=== PATIENT | male | born 1960 | race Caucasian/White ===

== ENCOUNTER 2022-12-19 13:08 | Emergency (ER) | payer BC ==
[~2022-12-19] VITALS: Ht 190.5 cm; Wt 101.9 kg
[2022-12-19] MEDS ORDERED: METOCLOPRAMIDE INJ 10MG/2ML VIAL IV ONE (14:25)
[2022-12-19] MEDS ORDERED: MECLIZINE 25 MG TABLET PO ONE (14:25)
[2022-12-19] MEDS ORDERED: ISOVUE-370 76% 100ML VIAL As Ordered ONE (14:42)
[2022-12-19 14:54] LABS: BASO % 0.4 % (0.0-1.0); EOS % 0.8 % (0.0-3.0); HEMATOCRIT 27.1 % (42.0-52.0); HEMOGLOBIN 8.9 g/dl (13.5-17.5); LYMPH # 0.2 10^3/uL (1.5-5.0); LYMPH % 7.9 % (24.0-44.0); MEAN CORPUSCULAR HEMOGLOBIN 34.5 pg (27.0-33.0); MEAN CORPUSCULAR HGB CONC 32.8 g/dl (32.0-36.5); MONO # 0.2 10^3/uL (0.0-0.8); NEUTROPHILS # 2.2 10^3/uL (1.5-8.5); NEUTROPHILS % 83.4 % (36.0-66.0); RED BLOOD COUNT 2.58 10^6/uL (4.30-6.10); WHITE BLOOD COUNT 2.7 10^3/uL (4.0-10.0)
[2022-12-19 14:55] LABS: INR 1.02; PROTHROMBIN TIME 13.6 SECONDS (12.5-14.5)
[2022-12-19 14:56] LABS: PARTIAL THROMBOPLASTIN TIME 27.7 SECONDS (24.8-34.2)
[2022-12-19 15:04] LABS: CK-MB VALUE MASS < 1.0 NG/ML (<3.6)
[2022-12-19 15:06] LABS: ALBUMIN 3.8 G/DL (3.2-5.2); ALKALINE PHOSPHATASE 56 U/L (46-116); ALT/SGPT 11 U/L (7.0-40); AST/SGOT < 8 U/L (<34); BILIRUBIN,DIRECT 0.4 MG/DL (<0.4); BILIRUBIN,TOTAL 1.1 MG/DL (0.3-1.2); BLOOD UREA NITROGEN 24 MG/DL (9-23); CALCIUM LEVEL 8.3 MG/DL (8.3-10.6); CARBON DIOXIDE LEVEL 26 MMOL/L (20-31); CHLORIDE LEVEL 105 MMOL/L (98-107); CPK CREATINE PHOSPHOKINASE 29 U/L (46-171); CREATININE FOR GFR 1.18 MG/DL (0.70-1.30); GLOMERULAR FILTRATION RATE > 60.0 (>49); GLUCOSE, FASTING 201 MG/DL (74-106); MB/CK RELATIVE INDEX 3.44 (< OR =4); POTASSIUM SERUM 4.2 MMOL/L (3.5-5.1); SODIUM LEVEL 139 MMOL/L (136-145); TOTAL PROTEIN 6.2 G/DL (5.7-8.2)
[2022-12-19 15:08] LABS: THYROID STIMULATING HORMONE 0.851 uIU/ML (0.55-4.78)
[2022-12-19 15:09] LABS: FREE T4 1.05 NG/DL (0.89-1.76)
[2022-12-19] MEDS: NS 1,000 ML IV SCH ×2 (15:09→21:00)
[2022-12-19 15:32] LABS: PLATELET COUNT, AUTOMATED 85 10^3/uL (150-450)
[2022-12-19 16:21] LABS: CK-MB VALUE MASS < 1.0 NG/ML (<3.6)
[2022-12-19 16:23] LABS: CPK CREATINE PHOSPHOKINASE 31 U/L (46-171); MB/CK RELATIVE INDEX 3.22 (< OR =4)
[2022-12-19 20:04] VITALS: TEMP 98.3
[2022-12-19] MEDS ORDERED: MECL1TAB31 PO (20:26)
[2022-12-19 20:45] VITALS: BP 116/56
[2022-12-19 20:49] VITALS: O2SAT 93
== END 2022-12-19 21:01 | disposition home or self-care (01) ==
LOC: M ED 13:08
DX: D61.818 Other pancytopenia (principal); H81.4 Vertigo of central origin; R00.1 Bradycardia, unspecified; E11.9 Type 2 diabetes mellitus without complications; I10 Essential (primary) hypertension; K58.9 Irritable bowel syndrome, unspecified; L98.2 Febrile neutrophilic dermatosis [Sweet]
CPT/HCPCS: 70450; 70496; 70498; 70544; 70551; 71046; 80047; 80048; 80076; 82550; 82553; 84439; 84443; 84484; 85025; 85049; 85055; 85610; 85730; 93005; 93041; 94760; 96374; 99285; J2765; Q9967

== ENCOUNTER → 2025-03-02 | Outpatient (CLI) | payer MEDICARE ==
[~2025-03-02] MED LIST: CYCL-707 PO; DOXY100T PO; DOXY50CA PO; FURO20TA2 PO; GLIM1TAB84 PO; JAKA10TA PO; LASI20TA3 PO; LIDO1ADH93 TD; MECL-209 PO; PERC5TAB12 PO; PRED10TA2 PO; SILD100T PO; VITA100093 PO
[2025-03-02 10:46] LABS: BASO # 0.0 10^3/uL (0.0-0.2); BASO % 0.0 % (0.0-1.0); EOS # 0.1 10^3/uL (0.0-0.5); EOS % 3.1 % (0.0-3.0); LYMPH # 0.4 10^3/uL (1.5-5.0); LYMPH % 23.5 % (24.0-44.0); MONO # 0.1 10^3/uL (0.0-0.8); MONO % 8.6 % (2.0-8.0); NEUTROPHILS # 1.0 10^3/uL (1.5-8.5); NEUTROPHILS % 64.2 % (36.0-66.0)
[2025-03-02 10:47] LABS: PLATELET COUNT, AUTOMATED 76 10^3/uL (150-450)
== END ==
LOC: M LAB 09:28
PROVIDERS: ATTEND Internal Medicine Hematology & Oncology
DX: L98.2 Febrile neutrophilic dermatosis [Sweet] (principal); D46.1 Refractory anemia with ring sideroblasts; D89.89 Other specified disorders involving the immune mechanism, not elsewhere classified